=== PATIENT | male | born 1995 | race Caucasian/White ===

== ENCOUNTER 2021-12-29 18:55 | Inpatient (IN) | payer SELFPAY ==
[~2021-12-29] VITALS: Ht 167.6 cm; Wt 127.9 kg
[2021-12-29 19:05] VITALS: BP 170/128
[2021-12-29] MEDS ORDERED: NACL 0.9% 2,000 ML IV ONE (19:20)
[2021-12-29] MEDS ORDERED: KETOROLAC 15 MG/ML VIAL IVP ONE (19:20)
[2021-12-29] MEDS ORDERED: ONDANSETRON 4 MG/2 ML VIAL IVP ONE (19:20)
--- NOTE | 2021-12-29 19:21 | NUR ---
26 YO M BIB SELF WITH C/C OF N/V X4DAYS. DENIES BLOOD IN EMESIS. REPORTS 9/10 MID ABD PAIN THAT COMES AND GOES. +BODY ACHES +CHILLS +DIARRHEA. STATES HE HAS BEEN HAVING A LOT OF HEARTBURN. DENIES FEVER, COUGH AND CONGESTION. ABD IS SOFT AND TENDER. BOWEL SOUNDS HYPOACTIVE [id number]. DENIES HX, RX AND ALLERGIES.
--- NOTE | 2021-12-29 19:28 | NUR ---
ERMD PARAG AT BEDSIDE
--- NOTE | 2021-12-29 19:30 | NUR ---
LAB AT BEDSIDE.
[2021-12-29 19:48] LABS: BASOPHILS # (AUTO) 0.1 K/uL (0.00-0.22); BASOPHILS % (AUTO) 0.5 % (0.0-2.0); EOSINOPHILS % (AUTO) 0.2 % (0.0-4.0); HEMATOCRIT 46.4 % (36-52); HEMOGLOBIN 15.6 g/dL (12.0-18.0); LYMPHOCYTES # (AUTO) 1.7 K/uL (2.0-11.5); LYMPHOCYTES % (AUTO) 15.2 % (20.5-51.1); MEAN CORPUSCULAR HEMOGLOBIN 29 pg (27-31); MEAN CORPUSCULAR HGB CONC 34 g/dL (33-37); MEAN CORPUSCULAR VOLUME 85.4 fL (80-94); MONOCYTES # (AUTO) 0.8 K/uL (0.8-1.0); MONOCYTES % (AUTO) 7.5 % (1.7-9.3); NEUTROPHILS # (AUTO) 8.5 K/uL (1.8-7.7); NEUTROPHILS % (AUTO) 76.6 % (42.2-75.2); PLATELET COUNT (AUTO) 243 K/uL (140-450); RED BLOOD CELL COUNT(AUTO) 5.43 MIL/uL (4.20-6.10); RED CELL DISTRIBUTION WIDTH 13.7 % (11.6-13.7); WHITE BLOOD COUNT (AUTO) 11.1 K/uL (4.8-10.8)
--- NOTE | 2021-12-29 19:50 | NUR ---
SWBS COLLECTED AND TAKEN TO LAB. IV TO LEFT AC 20G ESTABLISHED, MEDICATED PER ORDERS. PT STATES HE FEELS BETTER AFTER TORADOL SHOT.
[2021-12-29] MEDS ORDERED: ACETAMINOPHEN EXTRA STRENGTH 500 MG TAB PO ONE (20:00)
[2021-12-29 20:11] LABS: ALBUMIN 3.9 g/dL (3.4-5.0); ANION GAP 17.2 (8-16); CARBON DIOXIDE 23.5 mmol/L (21-32); CREATININE 1.2 mg/dL (0.6-1.3); POTASSIUM 3.7 mmol/L (3.5-5.1); TOTAL BILIRUBIN 0.6 mg/dL (0.0-1.0)
[2021-12-29] MEDS ORDERED: DEXTROSE 50% 50 ML SYR IVP PRN (20:20)
[2021-12-29] MEDS ORDERED: INSULIN REGULAR, HUMAN 100 UNIT in NACL 0.9% 100 ML IV SCH ×6 (20:20→21:40)
[2021-12-29] MEDS: BLOOD GLUCOSE MONITORING 1 DEV DEV FS SCH ×4 (20:41→23:20)
--- NOTE | 2021-12-29 20:45 | NUR ---
PT AMBULATED TO FOR URINE COLLECTION.
[2021-12-29 20:50] LABS: MAGNESIUM 1.9 mg/dL (1.8-2.4); PHOSPHORUS 4.8 mg/dL (2.5-4.9)
[2021-12-29 21:00] VITALS: BP 146/95
[2021-12-29] MEDS ORDERED: BLOOD GLUCOSE MONITORING 1 DEV DEV FS SCH (21:00)
[2021-12-29] MEDS: OSELTAMIVIR PHOSPHATE 75 MG CAP PO SCH (21:07)
--- NOTE | 2021-12-29 21:10 | NUR ---
PT'S SKIN IS INTACT AND DENIES HOME MEDS.
--- NOTE | 2021-12-29 21:21 | NUR ---
Patient will be admitted to care of DAVID. Admited to ICU. Will go to room ICU BED #1. Belongings list completed. Report to ABELARDO GOLDBERG.
[2021-12-29 21:28] LABS: APPEARANCE,URINE CLEAR (CLEAR); BILIRUBIN,URINE NEGATIVE (NEGATIVE); BLOOD, URINE TRACE-I (NEGATIVE); LEUKOCYTE ESTERASE ,URINE NEGATIVE (NEGATIVE); NITRITE, URINE NEGATIVE (NEGATIVE); PH,URINE 5.5 (5.0-9.0); UGLUCOSE 3+ (NEGATIVE)
--- NOTE | 2021-12-29 21:30 | NUR ---
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 SHE IS AOX4 ON ROOM AIR WITH SKIN INTACT AND ABLE TO AMBULATE WITH A STEADY GAIT. SHE HAS 2 IV SITES A RIGHT HAND 22G AND A LEFT AC 20 GUAGE THE RIGHT HAND IS RUNNING A BOLUS STARTED IN THE ER. THE LEFT AC IS RUNNING AN INSULIN GTT STARTED IN THE ER. MRSA SWAB DONE AND V/S FOLLOWS: T 99.4 P 84 R 20 B/P 146/95 02 98% ON ROOM AIR. REPORT GIVEN BY ER NURSE AT BEDSIDE. PT IS ALSO NOTED TO BE POSITIVE FOR FLU B. ALL ORDERED PRECAUTIONS IN PLACE
[2021-12-29 21:31] LABS: COLOR,URINE STRAW (YELLOW)
--- NOTE | 2021-12-29 21:35 | NUR ---
PT FINGERSTICK DONE AND IT IS 425. INSULIN GTT RUNNING PER PROTOCOL.
[2021-12-29] MEDS: DEXT 5% / NACL 0.45% 1,000 ML IV SCH (21:40)
[2021-12-29 21:42] LABS: RBC,URINE 0-5 /HPF (0-5)
[2021-12-29 21:43] LABS: HYALINE CASTS, URINE 0-10 /LPF (None Seen)
[2021-12-29] MEDS ORDERED: MAG SULF 2000 MG/WATER PREMIX 50 ML IV PRN (22:25)
[2021-12-29] MEDS: NACL 0.9% 1,000 ML IV SCH (22:28)
--- NOTE | 2021-12-29 22:30 | NUR ---
PT FINGERSTICK IS 372. ALL REQUESTED NEEDS ATTENDED BY STAFF. PT GIVEN URINAL AND BEDSIDE COMMODE.
--- NOTE | 2021-12-29 23:30 | NUR ---
PT FINGERSTICK IS 322. WILL CONTINUE TO MONITOR BLOOD GLUCOSE. ALL NEEDS ATTENDED BY STAFF AND ALL ORDERED PRECAUTIONS IN PLACE. BOLUS DONE, PT STARTED ON ORDERED N/S. WILL SWITCH TO N/S WHEN PT IS UNDER 200 PER PROTOCOL.
[2021-12-30] VITALS (11 sets, daily range): BP systolic 121–152; BP diastolic 60–95
--- NOTE | 2021-12-30 | NUR ---
PT C/O OF LEG/FEET CRAMPS. PT ALSO NOTED WITH LOW SODIUM AT 127. WILL NOTIFY MD CREATIVE SERVICES WRITER WHICH IS HER PRIMARY REGARDING ANY NEW ORDERS.
[2021-12-30] MEDS: BLOOD GLUCOSE MONITORING 1 DEV DEV FS SCH ×10 (00:20→21:28)
[2021-12-30 00:36] LABS: CREATININE 0.9 mg/dL (0.6-1.3)
[2021-12-30 00:40] LABS: MAGNESIUM 1.9 mg/dL (1.8-2.4)
[2021-12-30] MEDS ORDERED: GABAPENTIN 300 MG CAP ONE (00:56)
--- NOTE | 2021-12-30 01:00 | NUR ---
NEW ORDERS NOTED FROM MD. PT GIVEN X1 TABLET OF GABAPENTIN FOR LEG PAIN NOW AND ORDERED TID. LABS DRAWN AT BEDSIDE.
[2021-12-30] MEDS: DEXT 5% / NACL 0.45% 1,000 ML IV SCH ×2 (01:20→02:20)
--- NOTE | 2021-12-30 01:30 | NUR ---
PT FINGERSTICK IS 167, GTT CHANGED TO RATE OF 0.05 PER PROTOCOL.
[2021-12-30] MEDS: NACL 0.9% 1,000 ML IV SCH ×3 (01:46→10:00)
[2021-12-30] MEDS: KCL 20 MEQ/WATER INJ PREMIX 200 ML IV PRN ×2 (02:00→11:14)
--- NOTE | 2021-12-30 02:00 | NUR ---
PT C/O OF PAIN IN THE RIGHT HAND. IV SITE INFILTRATED. NEW IV SITE 22G ON THE LEFT HAND STARTED. LABS WORK REVEALS THAT POTASSIUM IS 3.0, PT WAS GIVEN ORDERED IVPB K RIDER PER PRN ORDERS.
--- NOTE | 2021-12-30 02:30 | NUR ---
PT FINGERSTICK IS 214. RATE OF INSULIN GTT CHANGED TO 0.1 D51/2 NS STOPPED AND N/S RESTARTED PER DKA PROTOCOL.
--- NOTE | 2021-12-30 02:52 | NUR ---
ABELARDO ABURTO FROM ICU GAVE REPORT FOR CONTINUITY OF CARE.
[2021-12-30 04:17] LABS: BASOPHILS # (AUTO) 0.1 K/uL (0.00-0.22); BASOPHILS % (AUTO) 0.5 % (0.0-2.0); EOSINOPHILS # (AUTO) 0.2 K/uL (0-0.4); EOSINOPHILS % (AUTO) 1.7 % (0.0-4.0); HEMATOCRIT 39.7 % (36-52); HEMOGLOBIN 13.2 g/dL (12.0-18.0); LYMPHOCYTES # (AUTO) 2.3 K/uL (2.0-11.5); LYMPHOCYTES % (AUTO) 19.3 % (20.5-51.1); MEAN CORPUSCULAR HEMOGLOBIN 28 pg (27-31); MEAN CORPUSCULAR HGB CONC 33 g/dL (33-37); MEAN CORPUSCULAR VOLUME 84.9 fL (80-94); MONOCYTES % (AUTO) 8.6 % (1.7-9.3); NEUTROPHILS # (AUTO) 8.5 K/uL (1.8-7.7); NEUTROPHILS % (AUTO) 69.9 % (42.2-75.2); PLATELET COUNT (AUTO) 201 K/uL (140-450); RED BLOOD CELL COUNT(AUTO) 4.68 MIL/uL (4.20-6.10); RED CELL DISTRIBUTION WIDTH 13.5 % (11.6-13.7); WHITE BLOOD COUNT (AUTO) 12.2 K/uL (4.8-10.8)
[2021-12-30 04:59] LABS: ANION GAP 12.2 (8-16); CARBON DIOXIDE 24.7 mmol/L (21-32); CREATININE 0.9 mg/dL (0.6-1.3)
[2021-12-30 05:11] LABS: POTASSIUM 2.9 mmol/L (3.5-5.1)
[2021-12-30] MEDS ORDERED: NACL 0.9% 1,000 ML IV SCH (05:30)
--- NOTE | 2021-12-30 05:34 | NUR ---
FINGERSTICK IS 211. NEW ORDERS NOTED.
[2021-12-30 05:35] LABS: MAGNESIUM 1.9 mg/dL (1.8-2.4); PHOSPHORUS 3.7 mg/dL (2.5-4.9)
[2021-12-30] MEDS: INSULIN LANTUS 100 UNITS/ML 10 ML VIAL SUBQ SCH (05:39)
--- NOTE | 2021-12-30 05:40 | NUR ---
RECEIVED CRITICAL LAB OF POTASSIUM 2.9, NOT REPORTED TO MD BECAUSE K RIDER STILL RUNNING WILL CONTINUE TO MONITOR PT HAS NEW LAB DRAWS AT 08AM .
--- NOTE | 2021-12-30 06:40 | NUR ---
PT FINGERSTICK IS 231 SHE WAS GIVEN 4 UNITS OF HUMALOG PER S/S. ALL UNIVERSAL FALLS PRECAUTIONS IN PLACE.
[2021-12-30] MEDS: INSULIN LISPRO SLIDING SCALE 100 UNITS/ML VIAL SUBQ PRN ×4 (06:59→21:32)
--- NOTE | 2021-12-30 07:45 | NUR ---
Received very thorough report from chargeRN using SBAR method just before entering room and meeting pt. At bedside for introduction and quick assessment. Pt was sleeping soundly but awoke when i entered room. I asked if she would like to sleep some more or if she would like to have bfast. She said she was done sleeping and would like to eat right now. Hence, pt was set up for bfast. pt has good color, temp and appearance, aaox4, good distal pulses x4ext. normal muscle tone and strength x4ext, VSS, PE WNL, NSR without ectopy, RRR no m/g/r, lungs CTAB, oxygenating and perfusing well. Denies any pain, sob, n/v, dizziness or discomfort. No s/sx of distress present.
[2021-12-30] MEDS ORDERED: ZOLPIDEM 5 MG TAB PO PRN (08:55)
[2021-12-30] MEDS ORDERED: DOCUSATE SODIUM 100 MG GELCAP PO PRN (08:55)
[2021-12-30] MEDS ORDERED: HYDROcodone/APAP 5/325 MG 1 TAB TAB PO PRN (08:55)
[2021-12-30] MEDS ORDERED: LORazepam 2 MG/ML VIAL IM/IVP PRN (08:55)
[2021-12-30] MEDS ORDERED: POTASSIUM CHLORIDE 10 MEQ TABER PO PRN (08:55)
[2021-12-30] MEDS ORDERED: ACETAMINOPHEN 325 MG TAB PO PRN (08:55)
[2021-12-30] MEDS ORDERED: MAG SULF 2000 MG/WATER PREMIX 50 ML IV PRN (08:55)
[2021-12-30] MEDS ORDERED: ONDANSETRON 4 MG/2 ML VIAL IM/IVP PRN (08:55)
--- NOTE | 2021-12-30 08:56 | NUR ---
PATIENT HAS BEEN SCREENED AND CATEGORIZED HIGH NUTRITION RISK. PATIENT WILL BE SEEN WITHIN 1-2 DAYS OF ADMISSION. 12/30/[address]
[2021-12-30] MEDS ORDERED: GABAPENTIN 300 MG CAP PO SCH (09:00)
[2021-12-30] MEDS: OSELTAMIVIR PHOSPHATE 75 MG CAP PO SCH ×2 (10:36→21:27)
[2021-12-30 11:30] LABS: ANION GAP 11.8 (8-16); CARBON DIOXIDE 24.9 mmol/L (21-32); CREATININE 0.9 mg/dL (0.6-1.3); POTASSIUM 3.7 mmol/L (3.5-5.1)
[2021-12-30 11:39] LABS: MAGNESIUM 1.8 mg/dL (1.8-2.4); PHOSPHORUS 4.1 mg/dL (2.5-4.9)
[2021-12-30 11:45] LABS: CHOL/HDL RATIO 5.4 (1-4.5); THYROID STIMULATING HORMONE 0.8 uIU/mL (0.34-3.74)
[2021-12-30 12:09] LABS: PROTHROMBIN TIME 10.1 secs (10.8-13.4)
--- NOTE | 2021-12-30 12:23 | NUR ---
DC PLANN[age] YRS OLD MALE PATIENT WAS ADMITTED FROM HOME WITH A DX OF DKA. PATIENT HAS NO MEDICAL HISTORY. ANION GAP ON ARRIVAL 17.2 ADMINISTERED INSULIN DRIP. AG 9.0 ,12.2 , INFLUENZA B +, ADMINISTERED TAMIFLU PO. CONSULTED WITH PULMO. DC PLAN TO DOWNGRADE TO TELE. TO FOLLOW
--- NOTE | 2021-12-30 12:29 | NUR ---
12/30/21 RD INITIAL ASSESSMENT COMPLETED PLEASE REFER TO NUTRITION ASSESSMENT UNDER CARE ACTIVITY FOR ESTIMATED NUTRITIONAL NEEDS. 1. [facility] 2. PROVIDED NUTRITION EDUCATION HANDOUTS FOR DIABETES AND CARB COUNTING 3. RD TO FOLLOW-UP 3-5 DAYS, MODERATE RISK EMILIO FOWLER RD
[2021-12-30 12:46] LABS: ANION GAP 15.2 (8-16); CARBON DIOXIDE 24.8 mmol/L (21-32); CREATININE 0.9 mg/dL (0.6-1.3)
[2021-12-30] MEDS: GABAPENTIN 300 MG CAP PO SCH ×2 (13:28→17:10)
--- NOTE | 2021-12-30 14:55 | NUR ---
Just gave thorough report to teleRN Joana using SBAR method. Reviewed all major issues of pt with Joana, all questions answered based on H and P and most current labs. Pt is watching tv currently with no complaints of pain, sob, n/v, or discomfort of any kind. Pt resting in pos of comfort. VSS, aaox4, no s/sx of distress present. Pt is patiently waiting transport upstairs. All possessions accounted for, bed in lowest pos, rails up x 3, all needs met, call light within reach.
[2021-12-30 15:23] LABS: MAGNESIUM 1.8 mg/dL (1.8-2.4); PHOSPHORUS 3.6 mg/dL (2.5-4.9)
--- NOTE | 2021-12-30 15:30 | NUR ---
PATIENT WHEELED BY RN FROM ICU ON A WHEELCHAIR. PATIENT ALERT ORIENTED ABLE TO MAKE NEEDS KNOWN. RESPIRATION EVEN AND NOT LABORED NO SHORTNESS OF BREATH. RESIDENT ON DROPLET ISOLATION DUE TO POSITIVE INFLUENZA. PATIENT ORIENTED TO ROOM, CALL LIGHT TV AND VISITING. PATIENT REQUESTED FOR SNACKS GIVEN JELLO AND ICE WATER. CALL LIGHT WITH IN EASY REACH. IV RUNNING AT 60 CC/HOURS. IV SITE NO0 SIGN AND SYMPTOMS OF INFECTION.
[2021-12-30 15:48] LABS: BARBITURATE, URINE NEGATIVE ng/ml (NEG <=200)
[2021-12-30 15:49] LABS: BENZODIAZEPINE, URINE NEGATIVE ng/mL (NEG <=200); CANNABINOID, URINE POSITIVE ng/mL (NEG <=50); COCAINE, URINE NEGATIVE ng/mL (NEG <=300); OPIATE, URINE NEGATIVE ng/mL (NEG <=2000); PHENCYCLIDINE SCREEN,URINE NEGATIVE ng/mL (NEG <=25)
--- NOTE | 2021-12-30 17:30 | NUR ---
PATIENT ALERT ABLE TO MAKE NEEDS KNOWN RESPIRATION EVEN AND NOT LABORED NO SHORTNESS OF BREATH. RESIDENT ALWAYS THIRSTY. DROPLET ISOLATION OBSERVE.
--- NOTE | 2021-12-30 18:55 | NUR ---
PATIENT ATE DINNER NO FEVER, NO CHILLS CALL LIGHT WITH IN EASY.
[2021-12-31] VITALS: BP 148/88
[2021-12-31] MEDS: NACL 0.9% 1,000 ML IV SCH ×2 (00:36→17:59)
[2021-12-31 04:00] VITALS: BP 144/91
[2021-12-31 05:42] LABS: CARBON DIOXIDE 26.7 mmol/L (21-32); CREATININE 0.8 mg/dL (0.6-1.3); POTASSIUM 3.7 mmol/L (3.5-5.1)
[2021-12-31 05:47] LABS: MAGNESIUM 1.8 mg/dL (1.8-2.4); PHOSPHORUS 3.9 mg/dL (2.5-4.9)
[2021-12-31 05:51] LABS: ALBUMIN 2.9 g/dL (3.4-5.0); BILIRUBIN,DIRECT 0.1 mg/dL (0.0-0.3); TOTAL BILIRUBIN 0.5 mg/dL (0.0-1.0)
[2021-12-31 05:59] LABS: BASOPHILS % (AUTO) 0.5 % (0.0-2.0); EOSINOPHILS # (AUTO) 0.2 K/uL (0-0.4); EOSINOPHILS % (AUTO) 2.6 % (0.0-4.0); HEMATOCRIT 39.6 % (36-52); HEMOGLOBIN 13.1 g/dL (12.0-18.0); LYMPHOCYTES # (AUTO) 2.2 K/uL (2.0-11.5); LYMPHOCYTES % (AUTO) 29.3 % (20.5-51.1); MEAN CORPUSCULAR HEMOGLOBIN 28 pg (27-31); MEAN CORPUSCULAR HGB CONC 33 g/dL (33-37); MEAN CORPUSCULAR VOLUME 85.2 fL (80-94); MONOCYTES # (AUTO) 0.6 K/uL (0.8-1.0); MONOCYTES % (AUTO) 8.3 % (1.7-9.3); NEUTROPHILS # (AUTO) 4.5 K/uL (1.8-7.7); NEUTROPHILS % (AUTO) 59.3 % (42.2-75.2); PLATELET COUNT (AUTO) 204 K/uL (140-450); RED BLOOD CELL COUNT(AUTO) 4.65 MIL/uL (4.20-6.10); RED CELL DISTRIBUTION WIDTH 13.5 % (11.6-13.7); WHITE BLOOD COUNT (AUTO) 7.6 K/uL (4.8-10.8)
[2021-12-31] MEDS: BLOOD GLUCOSE MONITORING 1 DEV DEV FS SCH ×4 (06:42→20:30)
--- NOTE | 2021-12-31 07:05 | NUR ---
HANDOFF WITH ABELARDO BAEZ. EZIO LEVY RN
--- NOTE | 2021-12-31 07:06 | NUR ---
RECEIVED REPORT FROM SMOG TECHNICIAN NURSE FOR CONTINUITY OF CARE. PT IN BED SLEEPING AT THIS TIME. RESPIRATIONS ARE EVEN AND UNLABORED ON ROOM AIR. NO SIGNS OF DISTRESS NOTED. NO SIGNS OF PAIN OR DISCOMFORT NOTED. CALL LIGHT WITHIN REACH. ALL SAFETY MEASURES IN PLACE. WILL CONTINUE TO MONITOR.
[2021-12-31] MEDS: INSULIN LISPRO SLIDING SCALE 100 UNITS/ML VIAL SUBQ PRN ×4 (07:17→20:41)
[2021-12-31 08:00] VITALS: BP 138/81
--- NOTE | 2021-12-31 08:00 | NUR ---
RECEIVED REPORT FROM NESTOR JI FOR CONTINUITY OF CARE. PT IS STABLE. PLAN OF CARE DISCUSSED.
[2021-12-31 08:08] LABS: T4 (THYROXINE) 10.3 ug/dL (4.5-12.0)
[2021-12-31] MEDS: INSULIN LANTUS 100 UNITS/ML 10 ML VIAL SUBQ SCH (08:56)
[2021-12-31] MEDS: OSELTAMIVIR PHOSPHATE 75 MG CAP PO SCH ×2 (09:02→20:30)
[2021-12-31] MEDS: GABAPENTIN 300 MG CAP PO SCH ×3 (09:02→17:33)
--- NOTE | 2021-12-31 09:05 | NUR ---
ADMINISTERED ALL SCHEDULED MEDICATIONS. EDUCATED PT REGARDING MEDS ADMINISTERED. ANSWERED ALL QUESTIONS. WILL CONTINUE TO MONITOR.
[2021-12-31] MEDS ORDERED: INSULIN LANTUS 100 UNITS/ML 10 ML VIAL SUBQ SCH (10:29)
--- NOTE | 2021-12-31 11:18 | NUR ---
PT BLOOD GLUCOSE WAS 355. ADMINISTERED INSULIN ORDERED. WILL CONTINUE TO MONITOR.
[2021-12-31 12:00] VITALS: BP 122/80
--- NOTE | 2021-12-31 13:27 | NUR ---
RECOMMENDED [facility] ([facility] 45GM DIET TO RN D/T PT HIGH BLOOD GLUCOSE. PT BLOOD GLUCOSE WAS 355 AT 1118 PER RN. NUTRITION EDUCATION HANDOUTS WERE PROVIDED YESTERDAY 12/30/21. RD WILL CONTINUE TO MONITOR. 12/31/[address]
--- NOTE | 2021-12-31 15:24 | NUR ---
DC PLANNING: THE PATIENT ADMITTED WITH HOME WITH C/O EMESIS X 3 DAYS, UNABLE TO TOLERATE PO'S. HR 125, B/P 1700/128, GAP 17.2, CR 1.2, GLUCOSE 550. PATIENT DETERMINED TO BE IN DKA, ALSO POSITIVE FOR INFLUENZA B. STARTED ON TAMIFLU AND INSULIN, IN ISOLATION. JAN SPOKE WITH THE PATIENT AT BEDSIDE AND CONFIRMED HER ADDRESS WHICH IS MISSING THE [id number]. HER CORRECT CELL NUMBER IS [phone]. THE PATIENT WORKS LONG HOURS AT [employer] AND USUALLY EATS THERE. SHE HAS HAD NO PRIOR DX OF DIABETES AND IS UNINSURED, ERON FROM [employer] IS WORKING ON [employer]IGIBILITY. SHE LIVES WITH ROOMMATES AND HAS NO OTHER HEALTH ISSUES PER HER STATEMENT. THE PATIENT IS INDEPENDENT IN ALL ACTIVITIES AND HAS NO OTHER DC NEEDS ASIDE FROM DIABETIC MONITORING AND RESOURCES. [facility] INTERVIEWED THE PATIENT WELL, WILL PROVIDE RESOURCES FOR DIABETIC SUPPORT GROUPS AND CLINICS FOR MD Sears/Antonia. JAN MADE THE PATIENT AWARE OF THE [employer] WEBSITE AND ALSO THAT THE PERL DEVELOPER WILL SEEING HER FOR NUTRITIONAL COUNSELING. JAN ENDORSED TO NURSING THAT THE PATIENT NEEDS A PRESCRIPTION FOR GLUCOMETER AND SUPPLIES, [facility] WILL ALSO GIVE HER A GOOD RX CARD FOR POSSIBLE MEDICATION GALEANA SAVINGS. PATIENT TO DC HOME WHEN STABLE, HER FRIEND WILL PROVIDE A RIDE FROM THE HOSPITAL. JAN WILL FOLLOW. Addendum: 12/31/21 at 1533 by Margarita De La Cruz CM Amended: Links added.
[2021-12-31 16:00] VITALS: BP 137/78
--- NOTE | 2021-12-31 17:35 | NUR ---
PT BLOOD GLUCOSE WAS 297. COVERED WITH 6 UNITS INSULIN PER SLIDING SCALE. WILL CONTINUE TO MONITOR.
--- NOTE | 2021-12-31 19:05 | NUR ---
ENDORSED PT TO CHOKER SETTER NURSE FOR CONTINUITY OF CARE. ALL NEEDS MET THROUGHOUT SHIFT. PT IS STABLE.
[2021-12-31 20:00] VITALS: BP 147/99
[2022-01-01] VITALS: BP 150/77
[2022-01-01 04:00] VITALS: BP 150/90
[2022-01-01 06:18] LABS: BASOPHILS % (AUTO) 0.5 % (0.0-2.0); EOSINOPHILS # (AUTO) 0.2 K/uL (0-0.4); HEMATOCRIT 41.2 % (36-52); HEMOGLOBIN 13.8 g/dL (12.0-18.0); LYMPHOCYTES % (AUTO) 22.3 % (20.5-51.1); MEAN CORPUSCULAR HEMOGLOBIN 29 pg (27-31); MEAN CORPUSCULAR HGB CONC 34 g/dL (33-37); MEAN CORPUSCULAR VOLUME 85.3 fL (80-94); MONOCYTES # (AUTO) 0.8 K/uL (0.8-1.0); MONOCYTES % (AUTO) 8.8 % (1.7-9.3); NEUTROPHILS % (AUTO) 66.4 % (42.2-75.2); PLATELET COUNT (AUTO) 209 K/uL (140-450); RED BLOOD CELL COUNT(AUTO) 4.83 MIL/uL (4.20-6.10); RED CELL DISTRIBUTION WIDTH 13.6 % (11.6-13.7); WHITE BLOOD COUNT (AUTO) 9.1 K/uL (4.8-10.8)
[2022-01-01] MEDS: BLOOD GLUCOSE MONITORING 1 DEV DEV FS SCH ×2 (06:43→11:11)
--- NOTE | 2022-01-01 07:02 | NUR ---
HANDOFF WITH SAMI MADISON, DAY SHIFT TEAM OF NURSES FOR PATIENT. EZIO LEVY RN
--- NOTE | 2022-01-01 07:03 | NUR ---
RECEIVED REPORT FROM RESEARCH AGRICULTURAL ENGINEER NURSE FOR CONTINUITY OF CARE. PT IN BED SLEEPING AT THIS TIME. RESPIRATIONS ARE EVEN AND UNLABORED ON ROOM AIR. NO SIGNS OF DISTRESS NOTED. LUNG SOUNDS CLEAR ON AUSCULTATION. PT IS ALERT AND ORIENTED X4, ABLE TO VERBALIZE NEEDS AND AMBULATE. PT IS ON CARDIAC MONITORING, SR. PT IS ON CCHO DIET, ABD IS NONTENDER, NONDISTENDED WITH BOWEL SOUNDS PRESENT. PT IS CONTINENT OF BOWEL AND BLADDER. CALL LIGHT WITHIN REACH. ALL SAFETY MEASURES IN PLACE. WILL CONTINUE TO MONITOR.
[2022-01-01] MEDS: INSULIN LISPRO SLIDING SCALE 100 UNITS/ML VIAL SUBQ PRN ×2 (07:16→11:12)
[2022-01-01 07:42] LABS: ANION GAP 15.1 (8-16); CARBON DIOXIDE 23.4 mmol/L (21-32); CREATININE 0.8 mg/dL (0.6-1.3); POTASSIUM 3.5 mmol/L (3.5-5.1)
[2022-01-01 07:52] LABS: MAGNESIUM 1.8 mg/dL (1.8-2.4); PHOSPHORUS 3.7 mg/dL (2.5-4.9)
[2022-01-01 08:00] VITALS: BP 142/92
[2022-01-01] MEDS ORDERED: CALCIUM ACETATE 667 MG TAB PO SCH (08:00)
[2022-01-01] MEDS ORDERED: INSULIN LANTUS 100 UNITS/ML 10 ML VIAL SUBQ SCH (09:00)
[2022-01-01] MEDS ORDERED: lisinopriL 5 MG TAB PO SCH (09:00)
[2022-01-01] MEDS: OSELTAMIVIR PHOSPHATE 75 MG CAP PO SCH (09:48)
[2022-01-01] MEDS: GABAPENTIN 300 MG CAP PO SCH ×2 (09:48→13:00)
--- NOTE | 2022-01-01 09:55 | NUR ---
ADMINISTERED ALL SCHEDULED MEDICATIONS. EDUCATED PT ON MEDS ADMINISTERED. ANSWERED ALL QUESTIONS. WILL CONTINUE TO MONITOR.
[2022-01-01] MEDS ORDERED: METF-1253 PO (10:25)
[2022-01-01] MEDS ORDERED: GLIP10TE PO (10:25)
[2022-01-01] MEDS ORDERED: TAM75 PO (10:26)
[2022-01-01] MEDS: NACL 0.9% 1,000 ML IV SCH (10:50)
--- NOTE | 2022-01-01 11:15 | NUR ---
PT BLOOD GLUCOSE WAS 360. COVERED WITH 10 UNITS INSULIN PER SLIDING SCALE. EDUCATED PT ON INSULIN ADMINISTRATION. PT VERBALIZED UNDERSTANDING. WILL CONTINUE TO MONITOR.
[2022-01-01 12:00] VITALS: BP 150/90
[2022-01-01 14:12] VITALS: BP 140/90
--- NOTE | 2022-01-01 15:16 | NUR ---
WENT OVER DISCHARGE PAPERWORK WITH PT. ANSWERED ALL QUESTIONS. PT SIGNED ALL PAPERWORK. REMOVED IV. IV CATHETER INTACT. ALL BELONGINGS TAKEN UPON DISCHARGE. PT DISCHARGED HOME VIA PRIVATE VEHICLE.
--- NOTE | 2022-01-01 15:17 | NUR ---
DC PLANNING [facility] MET WITH PATIENT AT BEDSIDE FOR THE PUPOSE OF DISCUSSING AND GATHERING COLLATERAL INFORMATION. PATIENT REPORTS LIVING WITH ROOMMATES AT THE ADDRESS LISTED. PATIENT REPORTS [address]T NUMBER [address]. PATIENT REPORTS CORRECT PHONE NUMBER [phone]. PATIENT REPORTS EMERGENCY CONTACT AND MEDICAL DECISION MAKER DINA COLEMAN (SISTER) [phone]. SW INQUIRED ON A.D, PATIENT DECLINED HAVING ONE IN PLACE. SW PROVIDED PATIENT WITH INFORMATION AND EDUCATION ON A.C; PATIENT WAS RECEPTIVE AND ACCEPTED PACKET PROVIDED BY [facility]. PATIENT REPORTS BEING INCONSISTENT WITH MEETING WITH DR REGULARLY SHE CURRENTLY DOES NOT HAVE MEDICAL INSURANCE. PATIENT REPORTS BARRIERS IN ACCESS TO MEDICATIONS, PATIENT DOES NOT HAVE INSURANCE. PATIENT REPORTS BEING AMBULATORY WITH NO ASSISTANCE. [facility] WILL FOLLOW UP TO PROVIDE PATIENT WITH DIABETIC RESOURCES, MENTAL HEALTH PACKET, GOOD RX SAVINGS CARD, AND [facility] RESOURCES. SW TO FOLLOW UP WITH RESOURCES Addendum: 01/01/22 at 1520 by Kj MAHAN SW MET WITH PATIENT TO PROVIDE PATIENT WITH RESOURCES ; GOOD RX SAVINGS CARD, MENTAL HEALTH PACKET, DIABETES RESOURCES, AND [facility] PACKET. PATIENT WAS THANKFUL AND REPORTED THAT SHE WOULD UTILIZE RESOURCES PROVIDED.
== END 2022-01-01 15:15 | disposition home or self-care (01) | DRG 638 ==
LOC: MED 18:55 → MIC 20:41 → MTU 12-30 15:30
DX: E11.10 Type 2 diabetes mellitus with ketoacidosis without coma (principal); E87.1 Hypo-osmolality and hyponatremia; R65.10 Systemic inflammatory response syndrome (SIRS) of non-infectious origin without acute organ dysfunction; Z68.42 Body mass index [BMI] 45.0-49.9, adult; Z20.822 Contact with and (suspected) exposure to COVID-19; F17.210 Nicotine dependence, cigarettes, uncomplicated; J10.1 Influenza due to other identified influenza virus with other respiratory manifestations; E11.65 Type 2 diabetes mellitus with hyperglycemia; E87.6 Hypokalemia; E66.01 Morbid (severe) obesity due to excess calories; E83.51 Hypocalcemia; E78.5 Hyperlipidemia, unspecified; E86.0 Dehydration; F12.90 Cannabis use, unspecified, uncomplicated; Z91.14 Patient's other noncompliance with medication regimen
CPT/HCPCS: 36415; 71045; 76705; 80048; 80053; 80076; 80305; 81001; 82803; 82948; 83036; 83605; 83690; 83735; 83880; 84100; 84134; 84436; 84443; 85025; 85610; 85730; 87040; 87081; 87086; 96361; 96365; 96375; 99285; J1815; J1885; J2405; J3480; Q0092